=== PATIENT | female | born 2000 | race Caucasian/White ===

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

== ENCOUNTER 2018-10-11 05:50 | Day surgery (SDC) | payer MEDICAID ==
[2018-10-11] MEDS: Sodium Chloride 0.9% 1,000 ML IV SCH ×2 (06:47→09:12)
[2018-10-11] MEDS ORDERED: Bupivacaine 0.5% 50 ML MDV ONE (06:53)
[2018-10-11] MEDS ORDERED: Lidocaine 1% with EPINEPHrine 1:100,000 50 ML MDV ONE (06:53)
[2018-10-11] MEDS ORDERED: Propofol 200 MG/20 ML SDV ONE (07:20)
[2018-10-11] MEDS ORDERED: Ondansetron 4 MG/2 ML SDV ONE (07:20)
[2018-10-11] MEDS ORDERED: Glycopyrrolate 0.2 MG/ML 5 ML MDV ONE (07:20)
[2018-10-11] MEDS ORDERED: fentaNYL 250 MCG/5 ML SDV ONE (07:20)
[2018-10-11] MEDS ORDERED: Neostigmine Methylsulfate 1 MG/ML 5 ML Syringe ONE (07:20)
[2018-10-11] MEDS ORDERED: Dexamethasone 4 MG/ML SDV ONE (07:20)
[2018-10-11] MEDS ORDERED: Succinylcholine 200 MG/10 ML MDV ONE (07:20)
[2018-10-11] MEDS ORDERED: Rocuronium 50 MG/5 ML Vial ONE (07:20)
[2018-10-11] MEDS ORDERED: Acetaminophen/HYDROcodone 325-5 MG Tab PO PRN ×2 (07:47→07:53)
[2018-10-11] MEDS ORDERED: hydrOXYzine HCl 100 MG/2 ML SDV IM PRN (07:47)
[2018-10-11] MEDS ORDERED: Zolpidem 5 MG Tab PO PRN (07:47)
[2018-10-11] MEDS ORDERED: Docusate Sodium 100 MG Cap PO PRN (07:47)
[2018-10-11] MEDS ORDERED: Benzocaine/Cetylpyridinium/Menthol Lozenge MUCMEM PRN (07:47)
[2018-10-11] MEDS ORDERED: fentaNYL 100 MCG/2 ML SDV IVPUSH PRN (07:50)
[2018-10-11] MEDS ORDERED: ceFAZolin 2 GM in Premix Bag 1 BAG IV ONE (08:00)
[2018-10-11] MEDS ORDERED: metroNIDAZOLE/Normal Saline 500 MG in Premix Bag 1 BAG IV ONE (08:30)
[2018-10-11] MEDS ORDERED: Ketorolac 60 MG/2 ML SDV ONE (08:38)
[2018-10-11] MEDS ORDERED: fentaNYL 100 MCG/2 ML SDV ONE (08:38)
[2018-10-11] MEDS ORDERED: hydrOXYzine HCl 100 MG/2 ML SDV IM ONE (08:57)
[2018-10-11] MEDS ORDERED: fentaNYL 100 MCG/2 ML SDV IVPUSH ONE ×2 (08:58→09:16)
[2018-10-11] MEDS ORDERED: Ropivacaine 46 ML, dexAMETHasone 8 MG, EPINEPHrine 0.4 MG, Sodium Chloride 0.9% 31.6 ML NERVRT SCH ×4 (09:00)
[2018-10-11 11:13] VITALS: BP 108/66
--- NOTE | 2018-10-11 15:29 | OR ---
DATE OF PROCEDURE: 10/11/2018 SURGEON: Mahendra La MD PROCEDURES: 1. Laparoscopic cholecystectomy. 2. Transversus abdominis plane blocks. COMPLICATIONS: None. OCTAVE BOARD ASSEMBLER: None. ANESTHESIA: General/TAP/local. RISKS: Risks, benefits, alternatives, and limitations including, but not limited to infection, bleeding, cystic duct leaks, common bile duct injuries; injury to bowel, bladder or blood vessels resulting in leak, seroma, hematoma, and were all explained to the patient and family, and they wished to proceed. ESTIMATED BLOOD LOSS: 10 mL. PROCEDURE IN DETAIL: The patient was placed in supine position. A supraumbilical curvilinear incision was made. A Veress needle was introduced and advanced atraumatically. The abdomen was subsequently insufflated. This was followed by an Optiview trocar. Upon entry, no evidence of enterotomy or injury was noted. A photo would be taken of the entry point. The gallbladder was retracted cephalad and the infundibulum was retracted inferolaterally. A "clear view" of the gallbladder was eventually obtained with a very short cystic duct. This was thoroughly dissected along with its respective cystic artery. Once these were dissected, they were clipped x3 and subsequently transected. An average-sized lymph node was also noted in promontory position; however, this was deflected medially. Once the lymph node was removed, the remaining one-third of the gallbladder was removed of the gallbladder bed. This was dissected using Harmonic Scalpel in combination with electrocautery. Prior to complete removal of the gallbladder, the gallbladder bed was inspected for any evidence of abnormal bleeding. The pressure was dropped. We waited for 1 minute and no evidence of any venous or arterial bleeding was noted. The remaining gallbladder was then removed using the superior port with very mild dilation. Once the gallbladder was removed, the abdomen was subsequently insufflated and reinspected. No abnormalities were noted. This was then thoroughly irrigated. The entry point was inspected. The stomach was inspected. The liver itself was inspected, which appeared to be normal without abnormality. No abnormal bleeding was noted after the gallbladder bed was reinspected. The air was removed. The wounds were closed with 3-0 Vicryl and 4-0 Vicryl interrupted running fashion after irrigation. Dermabond was applied. The patient tolerated the procedure well. Mahendra La MD /[id number]
--- NOTE | 2018-10-11 15:32 | OR ---
DATE OF PROCEDURE: 10/11/2018 SURGEON: Mahendra La MD PROCEDURE: Transversus abdominis plane block. COMPLICATIONS: None. CORN LAB TECHNICIAN: None. PREOPERATIVE DIAGNOSIS: Pain requirement. POSTOPERATIVE DIAGNOSIS: Pain requirement. RISKS: Risks, benefits, alternatives, and limitations including, but not limited to infection, bleeding, and injury to the abdomen were explained to the patient in the clinic and operative area. DESCRIPTION OF PROCEDURE: The patient was placed in supine position. The left abdomen was addressed first. Due to the patient's large body habitus, the transversus planes were more difficult to visualize. Nonetheless, they were eventually visualized. Needle was introduced and advanced with 80% of solution injected under direct visualization. Of note, the needle was not blindly advanced at any time. The right side was then performed in the same manner, same fashion, same technique, in the same sequence and using the same equipment. The patient tolerated the procedure well. Dressings were applied. Mahendra La MD /[id number]
== END 2018-10-11 13:27 | disposition home or self-care (01) ==
LOC: JP.SDS 05:50 → JP.MS 09:45 → JP.SDS 13:27
PROVIDERS: ATTEND Surgery
DX: K81.1 Chronic cholecystitis (principal); F17.210 Nicotine dependence, cigarettes, uncomplicated; G89.18 Other acute postprocedural pain; E66.9 Obesity, unspecified
CPT/HCPCS: 36415; 47562; 64486; 80053; 81025; 85027; 88304; A9270; J0171; J0330; J0690; J1100; J1885; J2405; J2704; J2710; J2795; J3010; J3410; J3490; J7030; J7050

== ENCOUNTER 2019-10-14 22:54 | Emergency (ER) | payer MEDICAID ==
[2019-10-14 23:09] VITALS: BP 139/91; PULSE 111
[2019-10-14] MEDS ORDERED: Ondansetron 4 MG Tab.DIS PO ONE (23:34)
--- NOTE | 2019-10-14 23:36 | EDM.PDOC ---
ED HPI GENERAL MEDICAL PROBLEM - General Chief Complaint: General Stated Complaint: SOB,THROWING UP Time Seen by Provider: 10/14/19 23:26 Source of Information: Reports: Patient, RN Notes Reviewed History Limitations: Reports: No Limitations - History of Present Illness INITIAL COMMENTS - FREE TEXT/NARRATIVE: 19-year-old female presents emergency department a complaint of cough shortness of breath with nausea and vomiting, she states she has been ill for 5 days has vomited 4-5 times per day she states the vomiting usually comes on when she has more movement after she vomits is when she feels short of breath she has short of breath with exertion she denies any fever 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 Negative test at home Chest Pain Score (Numeric/FACES): 7 - Related Data Allergies Allergy/AdvReac Type Severity Reaction Status Date / Time iodine Allergy Anaphylactic Verified 10/14/19 23:15 Shock shellfish derived Allergy Airway Verified 10/14/19 23:15 Tightness Home Meds: Home Meds NK [No Known Home Meds] 10/14/19 [History] Past Medical History HEENT History: Reports: Impaired Vision, Otitis Media Respiratory History: Reports: Asthma Gastrointestinal History: Reports: GERD ACADEMIC ADMINISTRATOR History: Reports: Spontaneous Other ACADEMIC ADMINISTRATOR History: LMP 1 mo ago Musculoskeletal History: Reports: Back Pain, Chronic, Fracture, Neck Pain, Chronic Neurological History: Reports: Concussion, Migraines Psychiatric History: Reports: Anxiety, Depression, Suicide Attempt, Suicidal Ideation Endocrine/Metabolic History: Reports: Obesity/BMI 30+ Hematologic History: Reports: Other (See Below) Other Hematologic History: anaplasmosis Dermatologic History: Reports: None - Infectious Disease History Infectious Disease History: Reports: Chicken Pox Other Infectious Disease History: anaplasmosis - Past Surgical History HEENT Surgical History: Reports: None Cardiovascular Surgical History: Reports: None Respiratory Surgical History: Reports: None GI Surgical History: Reports: Cholecystectomy Female Surgical History: Reports: None Endocrine Surgical History: Reports: None Neurological Surgical History: Reports: None Musculoskeletal Surgical History: Reports: Arthroscopic Knee Dermatological Surgical History: Reports: None Social & Family History - Family History Family Medical History: Noncontributory - Tobacco Use Smoking Status *Q: Current Every Day Smoker Years of Tobacco use: 8 Packs/Tins Daily: 0.1 - Caffeine Use Caffeine Use: Reports: Coffee - Recreational Drug Use Recreational Drug Use: Yes Recreational Drug Type: Reports: Marijuana/Hashish Recreational Drug Use Frequency: Socially ED ROS GENERAL - Review of Systems Review Of Systems: See Below Constitutional: Denies: Fever, Chills HEENT: Reports: No Symptoms Respiratory: Reports: Shortness of Breath, Cough Cardiovascular: Reports: Dyspnea on Exertion GI/Abdominal: Reports: Flatus, Nausea, Vomiting. Denies: Constipation, Diarrhea : Reports: No Symptoms Musculoskeletal: Reports: No Symptoms Skin: Reports: No Symptoms Neurological: Reports: No Symptoms ED EXAM, GENERAL - Physical Exam Exam: See Below Free Text/Narrative:: General: Female, not in any distress, alert and oriented x3 HEENT: head is atraumatic normocephalic, eyes pupils equal round reactive to light, sclera clear no conjunctivitis appreciated. Ears tympanic membranes clear and dodd landmarks and light reflex are present bilaterally canals are clear. Nose no septal deviation, nares are clear, no blood present. Mouth mucosa is moist and pink no erythema or exudate noted in soft palate, tongue is midline uvula is midline, dentition is intact. Neck: Supple no thyromegaly no tracheal deviation. Nodes: Cervical nodes subclavicular nodes nontender no palpable lymphadenopathy noted. Lungs: clear to auscultation bilaterally with symmetrical respirations, no adventitious noise appreciated. CV: Regular rate and rhythm S1 and S2 appreciated no murmurs rubs or gallops noted. Abdomen: Soft, nontender, no palpable masses or organomegaly appreciated, no distention no guarding bowel sounds are present, [scars ]. Neuro: GCS 15 cranial nerves grossly intact Skin: Warm and dry, intact Extremities: No lower extremity edema appreciated, Course - Vital Signs Last Recorded V/S: Last Vital Signs Temp 97.3 F 10/14/19 23:08 Pulse 111 H 10/14/19 23:08 Resp 18 10/14/19 23:08 BP 139/91 H 10/14/19 23:08 Pulse Ox 97 10/14/19 23:08 - Orders/Labs/Meds Orders: Active Orders 24 hr Category Date Time Status Peripheral IV Care [RC] . DIRECTED Care 10/15/19 00:21 Active Sodium Chloride 0.9% [Saline Flush] Med 10/15/19 00:21 Active 10 ml FLUSH ASDIRECTED PRN Peripheral IV Insertion Adult [OM.PC] Urgent Oth 10/15/19 00:21 Ordered Medication Orders Sodium Chloride (Saline Flush) 10 ml FLUSH ASDIRECTED PRN PRN Reason: Keep Vein Open Labs: Laboratory Tests 10/14/19 10/14/19 10/14/19 Range/Units 23:42 23:42 23:42 WBC 13.9 H (4.5-11.0) K/uL RBC 4.95 (3.30-5.50) M/uL Hgb 14.4 (12.0-15.0) g/dL Hct 41.9 (36.0-48.0) % MCV 85 (80-98) fL MCH 29 (27-31) pg MCHC 34 (32-36) % Plt Count 248 (150-400) K/uL Neut % (Auto) 55 (36-66) % Lymph % (Auto) 30 (24-44) % Emery % (Auto) 9 H (2-6) % Eos % (Auto) 7 H (2-4) % Baso % (Auto) 0 (0-1) % Sodium 128 L (140-148) mmol/L Potassium 3.8 (3.6-5.2) mmol/L Chloride 98 L (100-108) mmol/L Carbon Dioxide 25 (21-32) mmol/L Anion Gap 8.8 (5.0-14.0) mmol/L BUN 16 (7-18) mg/dL Creatinine 0.9 (0.6-1.0) mg/dL Est Cr Clr Drug Dosing 85.38 mL/min Estimated GFR (MDRD) > 60 (>60) Glucose 93 (74-106) mg/dL Lactic Acid 1.2 (0.4-2.0) mmol/L Calcium 8.4 L (8.5-10.1) mg/dL Total Bilirubin 0.3 (0.2-1.0) mg/dL AST 15 (15-37) U/L ALT 25 (12-78) U/L Alkaline Phosphatase 84 (46-116) U/L C-Reactive Protein 0.40 H (0.0-0.3) mg/dL Total Protein 7.4 (6.4-8.2) g/dL Albumin 3.4 (3.4-5.0) g/dL Globulin 4.0 H (2.3-3.5) g/dL Albumin/Globulin Ratio 0.9 L (1.2-2.2) Lipase 188 (73-393) U/L Procalcitonin ng/mL Urine Color (YELLOW) Urine Appearance (CLEAR) Urine pH (5.0-8.0) Ur Specific [place] (1.008-1.030) Urine Protein (NEGATIVE) mg/dL Urine Glucose (UA) (NEGATIVE) mg/dL Urine Ketones (NEGATIVE) mg/dL Urine Occult Blood (NEGATIVE) Urine Nitrite (NEGATIVE) Urine Bilirubin (NEGATIVE) Urine Urobilinogen (0.2-1.0) EU/dL Ur Leukocyte Esterase (NEGATIVE) Urine RBC (0-5) Urine WBC (0-5) Ur Epithelial Cells Amorphous Sediment Urine Bacteria Urine Mucus 10/14/19 10/14/19 Range/Units 23:42 23:47 WBC (4.5-11.0) K/uL RBC (3.30-5.50) M/uL Hgb (12.0-15.0) g/dL Hct (36.0-48.0) % MCV (80-98) fL MCH (27-31) pg MCHC (32-36) % Plt Count (150-400) K/uL Neut % (Auto) (36-66) % Lymph % (Auto) (24-44) % Emery % (Auto) (2-6) % Eos % (Auto) (2-4) % Baso % (Auto) (0-1) % Sodium (140-148) mmol/L Potassium (3.6-5.2) mmol/L Chloride (100-108) mmol/L Carbon Dioxide (21-32) mmol/L Anion Gap (5.0-14.0) mmol/L BUN (7-18) mg/dL Creatinine (0.6-1.0) mg/dL Est Cr Clr Drug Dosing mL/min Estimated GFR (MDRD) (>60) Glucose (74-106) mg/dL Lactic Acid (0.4-2.0) mmol/L Calcium (8.5-10.1) mg/dL Total Bilirubin (0.2-1.0) mg/dL AST (15-37) U/L ALT (12-78) U/L Alkaline Phosphatase (46-116) U/L C-Reactive Protein (0.0-0.3) mg/dL Total Protein (6.4-8.2) g/dL Albumin (3.4-5.0) g/dL Globulin (2.3-3.5) g/dL Albumin/Globulin Ratio (1.2-2.2) Lipase (73-393) U/L Procalcitonin < 0.05 ng/mL Urine Color Yellow (YELLOW) Urine Appearance Cloudy A (CLEAR) Urine pH 6.5 (5.0-8.0) Ur Specific [place] >= 1.030 (1.008-1.030) Urine Protein Negative (NEGATIVE) mg/dL Urine Glucose (UA) Negative (NEGATIVE) mg/dL Urine Ketones Negative (NEGATIVE) mg/dL Urine Occult Blood Negative (NEGATIVE) Urine Nitrite Negative (NEGATIVE) Urine Bilirubin Negative (NEGATIVE) Urine Urobilinogen 0.2 (0.2-1.0) EU/dL Ur Leukocyte Esterase Negative (NEGATIVE) Urine RBC 0-5 (0-5) Urine WBC 0-5 (0-5) Ur Epithelial Cells Many Amorphous Sediment Not seen Urine Bacteria Many Urine Mucus Few Meds: Medications Generic Name Dose Route Start Last Admin Trade Name Freq PRN Reason Stop Dose Admin Sodium Chloride 10 ml 10/15/19 00:21 Saline Flush FLUSH ASDIRECTED PRN Keep Vein Open Discontinued Medications Generic Name Dose Route Start Last Admin Trade Name Freq PRN Reason Stop Dose Admin Lactated Ringer's 1,000 mls @ 999 mls/hr 10/15/19 00:20 10/15/19 00:26 Ringers, Lactated IV 10/15/19 01:20 999 mls/hr BOLUS ONE Administration Ondansetron HCl 4 mg 10/14/19 23:34 10/14/19 23:40 Zofran Odt PO 10/14/19 23:35 4 mg ONETIME ONE Administration Departure - Departure Time of Disposition: 01:31 Disposition: Home, Self-Care 01 Condition: Fair Clinical Impression: Nausea and vomiting Qualifiers: Vomiting type: unspecified Vomiting Intractability: non-intractable Qualified Code(s): R11.2 - Nausea with vomiting, unspecified - Discharge Information Instructions: Nausea and Vomiting, Adult Referrals: Foresman,Deanne, CNM [Primary Care Provider] - Forms: ED Department Discharge Additional Instructions: Use Zofran as needed for nausea and vomiting symptoms please followup with your primary care provider in 3-5 days if not better, please call return to the emergency department with worsening of symptoms. Sepsis Event Note - Evaluation Sepsis Screening Result: No Definite Risk - Focused Exam Vital Signs: Vital Signs Temp Pulse Resp BP Pulse Ox 10/14/19 23:08 97.3 F 111 H 18 139/91 H 97 Date Exam was Performed: 10/15/19 Time Exam was Performed: 01:29 - My Orders Last 24 Hours: My Active Orders 10/15/19 00:21 Peripheral IV Care [RC] . DIRECTED Sodium Chloride 0.9% [Saline Flush] 10 ml FLUSH ASDIRECTED PRN Peripheral IV Insertion Adult [OM.PC] Urgent - Assessment/Plan Last 24 Hours: My Active Orders 10/15/19 00:21 Peripheral IV Care [RC] . DIRECTED Sodium Chloride 0.9% [Saline Flush] 10 ml FLUSH ASDIRECTED PRN Peripheral IV Insertion Adult [OM.PC] Urgent Plan: Assessment Acuity = acute Site and laterality = nausea and vomiting Etiology = unknown Manifestations = hyponatremia Location of injury = Home Lab values = WBC elevated 13.9 consistent with leukocytosis, sodium low at 128 consistent hyponatremia urinalysis unremarkable Plan Good relief with Zofran and 1 L fluids discharged home with Zofran 4 mg ODT 1 tab p.o. 3 times daily PRN total #5 follow-up primary care 3 to 5 days if not better This note was dictated using [employer] voice recognition software please call with any questions on syntax or grammar.
--- NOTE | 2019-10-14 23:58 | CRLCR ---
INDICATION: SHORT OF BREATH, THROWING UP CHEST, PA AND LATERAL Upright PA and lateral radiographs of the chest were performed. Comparison: No previous studies are currently available for comparison. The lungs appear clear and there are no pleural effusions. Heart size and pulmonary vasculature appear normal. Visualized bones show no significant findings. IMPRESSION: No acute intrathoracic abnormality identified. DESMOND FISH MD [facility] Dictated by: Jl Fish MD @ 10/14/2019 23:57:35 (Electronically Signed)
[2019-10-15] MEDS ORDERED: Lactated Ringers 1,000 ML IV ONE (00:20)
[2019-10-15] MEDS ORDERED: Sodium Chloride 0.9% 10 ML Syringe FLUSH PRN (00:21)
== END 2019-10-15 01:39 | disposition home or self-care (01) ==
LOC: JP.ED 22:54
DX: R11.2 Nausea with vomiting, unspecified (principal); J45.909 Unspecified asthma, uncomplicated; E66.9 Obesity, unspecified; F17.210 Nicotine dependence, cigarettes, uncomplicated; Z68.35 Body mass index [BMI] 35.0-35.9, adult; Z91.048 Other nonmedicinal substance allergy status; Z91.013 Allergy to seafood
CPT/HCPCS: 36415; 71046; 80053; 81001; 83605; 83690; 84145; 85025; 86140; 96360; 99284; A9270; J7120

== ENCOUNTER 2019-10-23 00:27 | Emergency (ER) | payer MEDICAID ==
[2019-10-23 00:43] VITALS: BP 133/86; PULSE 96
--- NOTE | 2019-10-23 01:14 | EDM.PDOC ---
ED HPI GENERAL MEDICAL PROBLEM - General Chief Complaint: General Stated Complaint: DIZZY,WEAKNESS Time Seen by Provider: 10/23/19 01:14 Source of Information: Reports: Patient History Limitations: Reports: No Limitations - History of Present Illness INITIAL COMMENTS - FREE TEXT/NARRATIVE: Patient presents tonight following completion of work with a description of right upper quadrant abdominal pain, intermittent for many months, intermittent dizziness feelings with changes of position, intermittent blackness of visual andersen with position-related dizziness, fatigue, nausea and vomiting. She has been seen in this department previously approximately 10 days ago and has also been seen in the clinic for some of the same symptoms. She has a recheck appointment on Wednesday this week, october 24. She feels as though she has incomplete answers to a collection of symptoms and concerns and was told when last in the emergency department at if she felt worse she should return. After work today she went home briefly and then came here. She has been treated for pneumonia in 1 outpatient setting but then was treated for some type of reactive airway disease with prednisone. She feels confused by everything going on and although she has an appointment in just a couple days was worried because of how she felt tonight. Onset: Gradual Duration: Chronic, Intermittent, Waxing/Waning Location: Reports: Head, Abdomen Quality: Reports: Burning, Dull Severity: Mild Improves with: Reports: None Worsens with: Reports: Movement Associated Symptoms: Reports: Fever/Chills, Malaise, Nausea/Vomiting Right Abdomen Pain Score (Numeric/FACES): 7 - Related Data Allergies Allergy/AdvReac Type Severity Reaction Status Date / Time iodine Allergy Anaphylactic Verified 10/23/19 00:42 Shock shellfish derived Allergy Airway Verified 10/23/19 00:42 Tightness Home Meds: Home Meds Ondansetron [Zofran ODT] 4 mg PO ASDIRECTED PRN 10/23/19 [History] Past Medical History HEENT History: Reports: Impaired Vision, Otitis Media Respiratory History: Reports: Asthma Gastrointestinal History: Reports: GERD Genitourinary History: Reports: None FUNERAL DIRECTOR/EMBALMER/OWNER History: Reports: Spontaneous Other FUNERAL DIRECTOR/EMBALMER/OWNER History: LMP 1 mo ago Musculoskeletal History: Reports: Back Pain, Chronic, Fracture, Neck Pain, Chronic Neurological History: Reports: Concussion, Migraines Psychiatric History: Reports: Anxiety, Depression, Suicide Attempt, Suicidal Ideation Endocrine/Metabolic History: Reports: Obesity/BMI 30+ Hematologic History: Reports: Other (See Below) Other Hematologic History: anaplasmosis Dermatologic History: Reports: None - Infectious Disease History Infectious Disease History: Reports: Chicken Pox Other Infectious Disease History: anaplasmosis - Past Surgical History HEENT Surgical History: Reports: None Cardiovascular Surgical History: Reports: None Respiratory Surgical History: Reports: None GI Surgical History: Reports: Cholecystectomy Female Surgical History: Reports: None Endocrine Surgical History: Reports: None Neurological Surgical History: Reports: None Musculoskeletal Surgical History: Reports: Arthroscopic Knee Dermatological Surgical History: Reports: None Social & Family History - Family History Family Medical History: Noncontributory - Tobacco Use Smoking Status *Q: Current Every Day Smoker Years of Tobacco use: 10 Packs/Tins Daily: 0.5 - Caffeine Use Caffeine Use: Reports: Coffee, Energy Drinks, Soda, Tea - Recreational Drug Use Recreational Drug Use: Yes Recreational Drug Type: Reports: Marijuana/Hashish Recreational Drug Use Frequency: Daily ED ROS GENERAL - Review of Systems Review Of Systems: See Below Constitutional: Reports: Fever, Malaise, Weakness. Denies: Night Sweats, Diaphoresis HEENT: Reports: Vertigo, Vision Change Respiratory: Reports: Shortness of Breath, Wheezing, Cough Cardiovascular: Reports: No Symptoms GI/Abdominal: Reports: Abdominal Pain : Reports: No Symptoms Neurological: Reports: Dizziness ED EXAM, GENERAL - Physical Exam Exam: See Below Free Text/Narrative:: This is an adult female seated on the bed in room 5. She can knowledge is that she has difficulties explaining some things to people, such as at this visit. Exam Limited By: No Limitations General Appearance: Alert, No Apparent Distress Neck: Supple, Non-Tender Respiratory/Chest: No Respiratory Distress, Lungs Clear Cardiovascular: Regular Rate, Rhythm GI/Abdominal: Soft, Tender (Right upper quadrant.) Neurological: Alert, Oriented, Slow to Respond (Hesitancy in responses) EKG INTERPRETATION EKG Date: 10/23/19 Time: 01:44 Rhythm: NSR Rate (Beats/Min): 77 Waterfall: Normal P-Wave: Present QRS: Normal ST-T: Normal QT: Normal Comparison: NA - No Prior EKG Course - Vital Signs Last Recorded V/S: Last Vital Signs Temp 36.8 C 10/23/19 00:39 Pulse 96 05/25/20 00:39 Resp 16 10/23/19 00:39 BP 133/86 10/23/19 00:39 Pulse Ox 97 10/23/19 00:39 - Orders/Labs/Meds Orders: Active Orders 24 hr Category Date Time Status EKG Documentation Completion [RC] ASDIRECTED Care 10/23/19 01:41 Active EKG 12 Lead [EK] Routine Ther 10/23/19 01:39 Ordered Labs: Laboratory Tests 10/23/19 10/23/19 10/23/19 Range/Units 01:55 01:55 02:03 WBC 10.2 (4.5-11.0) K/uL RBC 4.84 (3.30-5.50) M/uL Hgb 13.7 (12.0-15.0) g/dL Hct 40.5 (36.0-48.0) % MCV 84 (80-98) fL MCH 28 (27-31) pg MCHC 34 (32-36) % Plt Count 275 (150-400) K/uL Neut % (Auto) 54 (36-66) % Lymph % (Auto) 34 (24-44) % [place] % (Auto) 10 H (2-6) % Eos % (Auto) 2 (2-4) % Baso % (Auto) 0 (0-1) % Sodium 140 (140-148) mmol/L Potassium 3.6 (3.6-5.2) mmol/L Chloride 105 (100-108) mmol/L Carbon Dioxide 25 (21-32) mmol/L Anion Gap 9.8 (5.0-14.0) mmol/L BUN 9 (7-18) mg/dL Creatinine 0.9 (0.6-1.0) mg/dL Est Cr Clr Drug Dosing 85.38 mL/min Estimated GFR (MDRD) > 60 (>60) Glucose 96 (74-106) mg/dL Calcium 8.6 (8.5-10.1) mg/dL Total Bilirubin 1.0 D (0.2-1.0) mg/dL AST 16 (15-37) U/L ALT 28 (12-78) U/L Alkaline Phosphatase 81 (46-116) U/L C-Reactive Protein 0.38 H (0.0-0.3) mg/dL Total Protein 7.7 (6.4-8.2) g/dL Albumin 3.6 (3.4-5.0) g/dL Globulin 4.1 H (2.3-3.5) g/dL Albumin/Globulin Ratio 0.9 L (1.2-2.2) Lipase 82 (73-393) U/L Urine Color Yellow (YELLOW) Urine Appearance Slightly cloudy A (CLEAR) Urine pH 5.5 (5.0-8.0) Ur Specific Mcneil >= 1.030 (1.008-1.030) Urine Protein Negative (NEGATIVE) mg/dL Urine Glucose (UA) Negative (NEGATIVE) mg/dL Urine Ketones 15 H (NEGATIVE) mg/dL Urine Occult Blood Negative (NEGATIVE) Urine Nitrite Negative (NEGATIVE) Urine Bilirubin Small H (NEGATIVE) Urine Urobilinogen 0.2 (0.2-1.0) EU/dL Ur Leukocyte Esterase Negative (NEGATIVE) Urine RBC 0-5 (0-5) Urine WBC 0-5 (0-5) Ur Epithelial Cells Few Amorphous Sediment Few Urine Bacteria Few Urine Mucus Numerous Urine HCG, Qual // Range/Units 02:03 WBC (4.5-11.0) K/uL RBC (3.30-5.50) M/uL Hgb (12.0-15.0) g/dL Hct (36.0-48.0) % MCV (80-98) fL MCH (27-31) pg MCHC (32-36) % Plt Count (150-400) K/uL Neut % (Auto) (36-66) % Lymph % (Auto) (24-44) % [place] % (Auto) (2-6) % Eos % (Auto) (2-4) % Baso % (Auto) (0-1) % Sodium (140-148) mmol/L Potassium (3.6-5.2) mmol/L Chloride (100-108) mmol/L Carbon Dioxide (21-32) mmol/L Anion Gap (5.0-14.0) mmol/L BUN (7-18) mg/dL Creatinine (0.6-1.0) mg/dL Est Cr Clr Drug Dosing mL/min Estimated GFR (MDRD) (>60) Glucose (74-106) mg/dL Calcium (8.5-10.1) mg/dL Total Bilirubin (0.2-1.0) mg/dL AST (15-37) U/L ALT (12-78) U/L Alkaline Phosphatase (46-116) U/L C-Reactive Protein (0.0-0.3) mg/dL Total Protein (6.4-8.2) g/dL Albumin (3.4-5.0) g/dL Globulin (2.3-3.5) g/dL Albumin/Globulin Ratio (1.2-2.2) Lipase (73-393) U/L Urine Color (YELLOW) Urine Appearance (CLEAR) Urine pH (5.0-8.0) Ur Specific [place] (1.008-1.030) Urine Protein (NEGATIVE) mg/dL Urine Glucose (UA) (NEGATIVE) mg/dL Urine Ketones (NEGATIVE) mg/dL Urine Occult Blood (NEGATIVE) Urine Nitrite (NEGATIVE) Urine Bilirubin (NEGATIVE) Urine Urobilinogen (0.2-1.0) EU/dL Ur Leukocyte Esterase (NEGATIVE) Urine RBC (0-5) Urine WBC (0-5) Ur Epithelial Cells Amorphous Sediment Urine Bacteria Urine Mucus Urine HCG, Qual Negative - Re-Assessments/Exams Free Text/Narrative Re-Assessment/Exam: 10/23/19 01:50 There is difficult to find a common thread connecting all of previously described symptoms. Her right upper quadrant pain could be an adhesion pain related to her cholecystectomy of one year ago. The position change dizziness could certainly be vertigo/labyrinthitis but the blackness or loss of vision description is unusual. 10/23/19 03:13 I returned later to review test results which show normal values. Her sodium today is 140, an improvement from the previous value of 128. I don't have a complete answer to her position change dizziness. It could be vertigo. She should avoid sudden changes in position. Her description of blackness of vision would be extremely rare at her age and I'm not sure if the story is being embellished are not? I discussed with her that if she truly is losing vision acutely during the day than it is not safe for her to drive. She will consider that and is going to get a ride home tonight. I recommend she keep her upcoming primary care appointment to review how she is feeling. The right upper quadrant abdominal pain could be adhesions related to prior gallbladder surgery. She has look comfortable and in no distress during her visit here tonight. No new prescriptions were provided. Departure - Departure Time of Disposition: 02:46 Disposition: Home, Self-Care 01 Clinical Impression: Dizziness, nonspecific Abdominal pain Qualifiers: Abdominal location: right upper quadrant Qualified Code(s): R10.11 - Right upper quadrant pain - Discharge Information Instructions: Dizziness Referrals: Deanne Lucia CNM [Primary Care Provider] - Forms: ED Department Discharge Additional Instructions: Avoid sudden changes in position that may cause dizziness. If loss of vision episodes are continuing, you should not drive any kind of motor vehicle for your safety and others. The abdominal pain could be related to adhesions of tissue after your gallbladder surgery a year ago however it's more common to have those symptoms show up much earlier than this point in time. Keep your scheduled clinic recheck visit for later in the week. Sepsis Event Note - Evaluation Sepsis Screening Result: No Definite Risk - Focused Exam Vital Signs: Vital Signs Temp Pulse Resp BP Pulse Ox 10/23/19 00:39 36.8 C 96 16 133/86 97 Date Exam was Performed: 10/23/19 Time Exam was Performed: 03:11 - My Orders Last 24 Hours: My Active Orders 10/23/19 01:39 EKG 12 Lead [EK] Routine 10/23/19 01:41 EKG Documentation Completion [RC] ASDIRECTED - Assessment/Plan Last 24 Hours: My Active Orders 10/23/19 01:39 EKG 12 Lead [EK] Routine 10/23/19 01:41 EKG Documentation Completion [RC] ASDIRECTED
== END 2019-10-23 02:50 | disposition home or self-care (01) ==
LOC: JP.ED 00:27
DX: R42 Dizziness and giddiness (principal); R10.11 Right upper quadrant pain; E66.9 Obesity, unspecified; Z91.013 Allergy to seafood; Z88.8 Allergy status to other drugs, medicaments and biological substances; Z90.49 Acquired absence of other specified parts of digestive tract; F17.210 Nicotine dependence, cigarettes, uncomplicated; Z68.34 Body mass index [BMI] 34.0-34.9, adult
CPT/HCPCS: 36415; 80053; 81001; 81025; 83690; 85025; 86140; 93005; 99284-25